=== PATIENT | male | born 1960 | race Caucasian/White ===

== ENCOUNTER 2016-12-13 06:39 | Emergency (ER) | payer MEDICAID, OTHER ==
[~2016-12-13] VITALS: Ht 188 cm; Wt 158.8 kg
[2016-12-13 07:24] VITALS: BP 154/82
[2016-12-13] MEDS ORDERED: HYDROmorphone HCL 2 MG/ML VL IM ONE (09:00)
[2016-12-13] MEDS ORDERED: PROMETHAZINE HCL 25 MG/ML 1ML IM ONE (09:00)
== END 2016-12-13 09:50 | disposition home or self-care (01) ==
LOC: ER 06:39
DX: G89.29 Other chronic pain (principal); M54.5 Low back pain; I10 Essential (primary) hypertension
CPT/HCPCS: 96372; 99284; J1170; J2550